=== PATIENT | female | born 1970 | race Caucasian/White ===

== ENCOUNTER 2018-01-03 09:30 | Day surgery (SDC) | payer BC ==
[2018-01-03 09:38] VITALS: BMI 43.5
[2018-01-03 10:22] LABS: BASO % 0.6 % (0-2.0); EOS % 4.1 % (0-4.5); HEMATOCRIT 46.8 % (32.4-45.2); HEMOGLOBIN 15.6 GM/dl (10.7-15.3); LYMPH % 31.8 % (8-40); MCH 29.4 pg (25.7-33.7); MCHC 33.4 g/dl (32.0-36.0); MEAN CELL VOLUME 88.2 fl (80-96); MEAN PLT VOLUME 9.1 fl (7.5-11.1); MONO % 7.2 % (3.8-10.2); NEUT % 56.3 % (42.8-82.8); PLATELET COUNT 257 K/MM3 (134-434); RBC 5.31 M/mm3 (3.60-5.2); RDW 14.4 % (11.6-15.6); WHITE BLOOD COUNT 9.8 K/mm3 (4.0-10.8)
[2018-01-03 10:36] LABS: INR 1.02 (0.82-1.09); PROTHROMBIN TIME (PATIENT) 11.4 SEC (10.2-13.0)
[2018-01-03 10:42] LABS: ALBUMIN 3.7 g/dl (3.5-5.0); ALK PHOS 53 U/L (32-92); ANION GAP 5 (8-16); BILIRUBIN,TOTAL 0.5 mg/dl (0.2-1.0); BLOOD UREA NITROGEN 15 mg/dl (7-18); CHLORIDE 106 mmol/L (98-107); CO2 24 mmol/L (22-28); CREATININE 0.7 mg/dl (0.6-1.3); GLUCOSE,RANDOM 102 mg/dl (74-106); POTASSIUM 3.9 mmol/L (3.5-5.1); SGOT/AST 18 U/L (10-42); SGPT/ALT 18 U/L (10-40); SODIUM 135 mmol/L (136-145); TOT PROT 6.6 g/dl (6.4-8.3)
--- NOTE | 2018-01-03 10:50 | PDOC ---
History of Present Illness - General Chief Complaint: Wound Stated Complaint: PUS COMING OUT OF OP SITE Time Seen by Provider: 01/03/18 09:45 History Source: Patient Exam Limitations: No Limitations - History of Present Illness Initial Comments: 01/03/18 10:45 47-year-old female status post lap gastric sleeve in July 2017 presents with persistent discharge from left abdominal laparoscopic site. Patient has had daily discharge from the wound since 1-2 weeks following the surgery, has completed about 3 courses of antibiotics including Bactrim and Levaquin, most recently completed the last course about a week ago. Per PMD, wound culture has grown staph. Patient has no fevers or chills, occasionally has redness around the wound, has images showing purulent discharge but no blood. Patient had a CAT scan 3 days ago and was called by Dr. Bojorquez today to presents for treatment of infection. Reports some expected diarrhea since the procedure. Complains of fatigue but no f/c/night sweats. Past History - Past Medical History Allergies/Adverse Reactions: Allergies Allergy/AdvReac Type Severity Reaction Status Date / Time No Known Drug Allergies Allergy Verified 01/03/18 09:33 Home Medications: Ambulatory Orders Albuterol Sulfate Inhaler - [Ventolin Hfa Inhaler -] 1 - 2 inh PO Q4H PRN Budesonide/Formeterol Fumarate [SYMBICORT 160/4.5mcg -] 1 inh PO DAILY 01/03/18 Lisinopril/Hydrochlorothiazide [Zestoretic 10-12.5 mg Tablet] 1 each PO DAILY Quetiapine Fumarate [Seroquel -] 50 mg PO HS 01/03/18 Topiramate 100 mg PO BID 01/03/18 Venlafaxine HCl [Effexor -] 75 mg PO DAILY 01/03/18 Asthma: Yes COPD: No HTN: Yes Other medical history: MIGRAINE HEADACHES - Surgical History Appendectomy: Yes Cholecystectomy: Yes - Suicide/Smoking/Psychosocial Hx Smoking History: Never smoked Have you smoked in the past 12 months: No Hx Alcohol Use: No Drug/Substance Use Hx: No Review of Systems - Review of Systems Constitutional: Yes: Malaise. No: Chills, Fever, Night Sweats Respiratory: No: Cough, Shortness of Breath Cardiac (ROS): No: Chest Pain, Palpitations ABD/GI: Yes: See HPI. No: Nausea, Vomiting : No: Dysuria, Frequency Integumentary: Yes: See HPI All Other Systems: Reviewed and Negative *Physical Exam - Vital Signs Last Vital Signs Temp Pulse Resp BP Pulse Ox 98.3 F 72 18 146/68 100 01/03/18 09:30 01/03/18 09:30 01/03/18 09:30 01/03/18 09:30 01/03/18 09:30 - Physical Exam Comments: 01/03/18 10:47 Afebrile. Vital signs normal. GENERAL: The patient is awake, alert, and fully oriented, in no acute distress. Morbidly obese. HEAD: Normal with no signs of trauma. EYES: PERRL, EOMI, sclera anicteric, conjunctiva clear with no pallor. ENT: oropharynx clear without exudates. Moist mucous membranes. NECK: Normal range of motion, supple without lymphadenopathy, JVD, or masses. LUNGS: Breath sounds equal, clear to auscultation bilaterally. No wheeze/ crackles. HEART: Regular rate and rhythm, normal S1 and S2 without murmur or rub. ABDOMEN: Soft/nontender/nondistended. BS wnl. No guarding or rebound. No palpable masses. No hepatosplenomegaly. EXTREMITIES: Normal range of motion, no edema. 2+ distal pulses. No cords, erythema, or tenderness. NEUROLOGICAL: Cranial nerves II through XII grossly intact. Normal speech, normal gait. PSYCH: Normal mood, normal affect. SKIN: Left anterior abdomen laparoscopic site with slightly open wound, no active discharge but there is a 4-5 cm area of subcutaneous induration that is tender just below the wound. No surrounding erythema at this time. Other Healed laparoscopic incision sites noted. ED Treatment Course - LABORATORY CBC & Chemistry Diagram: 01/03/18 10:10 01/03/18 10:10 - ADDITIONAL ORDERS Additional order review: 01/03/18 10:10 RBC 5.31 H MCV 88.2 MCHC 33.4 RDW 14.4 MPV 9.1 Neutrophils % 56.3 Lymphocytes % 31.8 Monocytes % 7.2 Eosinophils % 4.1 Basophils % 0.6 Medical Decision Making - Medical Decision Making 01/03/18 10:49 47-year-old female with likely infected laparoscopic incision site. Likely has underlying subcutaneous abscess requiring drainage. Well appearing without evidence of sepsis. labs, wound culture Will obtain imaging results and plan from Dr. Bojorquez 01/03/18 11:29 normal labs, no leukocytosis. Plan is for OR with Dr. Bojorquez, who saw pt in ED. *DC/Admit/Observation/Transfer Diagnosis at time of Disposition: Abdominal wall abscess at site of surgical wound - Discharge Dispostion Condition at time of disposition: Stable Admit: Yes - Referrals - Patient Instructions - Post Discharge Activity
[2018-01-03 11:17] LABS: PH,URINE 7.5 (4.5-8); URINE APPEARANCE Cloudy; URINE BILIRUBIN Negative (NEGATIVE); URINE BLOOD Negative (NEGATIVE); URINE GLUCOSE (UA) Negative (NEGATIVE); URINE KETONE Trace (NEGATIVE); URINE NITRITE Negative (NEGATIVE); URINE PROTEIN Negative (NEGATIVE)
[2018-01-03 11:19] LABS: URINE COLOR YELLOW; URINE LEUK ESTERASE TRACE (NEGATIVE)
[2018-01-03 11:22] LABS: HCG,QUALITATIVE URINE NEGATIVE
[2018-01-03 11:40] LABS: AMORP PHOS FEW /hpf (NONE SEEN); EPI CELLS FEW /HPF; URINE RBC 0-2 /hpf (0-3); URINE WBC 0-2 (0-5)
[2018-01-03] MEDS ORDERED: MIDAZOLAM HCL 2 MG/2 ML SINGLE DOSE VIAL ONE (12:14)
[2018-01-03] MEDS ORDERED: SUCCINYLCHOLINE CHLORIDE 200 MG/10 ML VIAL ONE (12:14)
[2018-01-03] MEDS ORDERED: PROPOFOL 20 ML ONE ×2 (12:14)
[2018-01-03] MEDS ORDERED: ceFAZolin SODIUM 1 GM VIAL ONE (12:27)
[2018-01-03] MEDS ORDERED: ONDANSETRON 4 MG/2 ML VIAL ONE (12:31)
[2018-01-03] MEDS ORDERED: ONDANSETRON 4 MG/2 ML VIAL IVPUSH PRN ×3 (13:04→14:52)
[2018-01-03] MEDS ORDERED: oxyCODONE HCL 5 MG TABLET PO PRN (13:04)
[2018-01-03] MEDS ORDERED: FAMOTIDINE 20 MG PREMIXED IVPB IVPB ONE (13:10)
[2018-01-03] MEDS ORDERED: FAMOTIDINE 20 MG/50 ML IVPB 20 MG/50 ML MG IVPB ONE (13:15)
[2018-01-03] MEDS ORDERED: LACTATED RINGERS SOLUTION 1,000 ML IV SCH (13:15)
--- NOTE | 2018-01-03 13:20 | OP ---
Operative Note - Note: Operative Date: 01/03/18 Pre-Operative Diagnosis: Infected Left Abdominal Wall Subcutaneous tissue Operation: I&D of Left Abdominal Wall Abscess. Debridement of necrotic tissue of left abdominal wall subcutaneous tissue Findings: Left abdominal wall subcutaneous tissue with abscess noted with purulent fluid under skin. Necrotic subcutaneous tissue debrided and sent for culture and pathology Post-Operative Diagnosis: Same as Pre-op (necrotic subcutaneous tissue; abdominal wall abscess) Surgeon: Andre Bojorquez Anesthesia: General Specimens Removed: Left abdominal wall subcutaneous tissue Estimated Blood Loss (mls): 20 Operative Report Dictated: Yes
--- NOTE | 2018-01-03 13:21 | OP ---
Operative Note - Note: Operative Date: 01/03/18 Pre-Operative Diagnosis: Infected left abdominal wall subcutaneo Operation: I&D of Abdominal wall abscess. Debridement of necrotic sub-Q tissue of abdominal wall Findings: Purulent material found under skin of left abdominal wall Necrotic sub-Q tissue found and debrided Post-Operative Diagnosis: Same as Pre-op (Abscess of left abdominal wall; Necrotic sub-Q tissue of abdominal wall) Surgeon: Andre Bojorquez Anesthesia: General Specimens Removed: Infected/necrotic sub-Q tissue of left abdominal wall Estimated Blood Loss (mls): 20 Operative Report Dictated: Yes
--- NOTE | 2018-01-03 14:17 | OP ---
DATE OF OPERATION: 01/03/2018 PREOPERATIVE DIAGNOSIS: Infected subcutaneous tissue of the left abdominal pain. POSTOPERATIVE DIAGNOSES: 1. Left abdominal wall subcutaneous abscess. 2. Left abdominal wall subcutaneous necrotic tissue. OPERATIVE PROCEDURES: 1. Incision and drainage of left abdominal wall abscess. 2. Debridement of necrotic subcutaneous tissue of left abdominal wall. OPERATING SURGEON: Andre Bojorquez MD ANESTHESIA: General. EXPECTED BLOOD LOSS: 20 mL. DESCRIPTION OF PROCEDURE: The patient was brought into the operating room and placed on the OR table in a supine position. All precautions were taken initially including padding for the back. The abdomen was then prepped and draped in a usual manner. At that point, the patient's left upper quadrant trocar incision had been infected for approximately 4-6 weeks prior to surgery. She received multiple rounds of antibiotics by her primary care physician without any improvement. At this point, the incision was opened up for approximately 3 cm in a transverse direction with a scalpel. Once it went through the hard area of the skin, which was a lot of fibrous tissue, there was an open cavity in the subcutaneous tissue. This cavity had fluid in it, which was significant for pus, and cultures were taken and sent off the field to the laboratory. At this point, there were found to be loculations in all 360-degree circular direction around the incision under the skin. With a combination of a hemostat clamp and also with the operating surgeon's finger, these adhesions were broken up, and more infected tissue was noted behind the adhesion. This was suctioned out with a handheld suction until the area was basically cleared of all loculations. Attention was now directed to the tissue in the subcutaneous plane, which appeared to be infected and necrotic. This was debrided off of the left anterior rectus muscle, and it was done so until some slight bleeding was noted. Irrigation was now placed into the area in all directions and suctioned until clear. At that point, 1-inch plain packing was placed into the pocket in the subcutaneous tissue in all directions, specifically medially, laterally, and also inferiorly. Dressings and Tegaderm were placed and the patient awoken from anesthesia and transferred out of the operating room to the recovery room in stable condition. Woo [id number]
[2018-01-03 14:23] VITALS: PULSE 56; TEMP 97.7
[2018-01-03 14:56] VITALS: BP 122/67
[2018-01-03] MEDS ORDERED: SODIUM CHLORIDE 1,000 ML IV SCH (15:00)
[2018-01-03] MEDS ORDERED: FAMOTIDINE 20 MG/50 ML IVPB 20 MG/50 ML MG IVPB SCH (22:00)
--- NOTE | 2018-01-07 11:19 | PATH ---
Surgical Pathology Report Patient Name: REANNA NAVA [facility]. Rec. #: [id number] /Age/Gender: 1970 (Age: 47) / F Account: [id number] Location: [facility] Taken: 01/03/2018 Received: 01/03/2018 Reported: 01/07/2018 Physicians: Andre Bojorquez M.D. Specimen(s) Received LEFT ABDOMINAL WALL INFECTED SUBCUTANEOUS FAT Clinical History Infection left abdominal wall Final Diagnosis SOFT TISSUE, LEFT ABDOMINAL WALL, DEBRIDEMENT: ADIPOSE TISSUE WITH FAT NECROSIS AND ACUTE INFLAMMATION. Electronically Signed Dennys Styles M.D. Gross Description Received in formalin labelled "left abdominal wall infected subcutaneous fat" is a 3 x 3 x 0.8 cm aggregate of yellow fatty tissue fragments. A credit resolution representative portion is submitted in one cassette. [facility]/01/04/2018 [facility]/01/04/2018
== END 2018-01-03 14:46 | disposition home or self-care (01) ==
LOC: FER 09:30 → FASU 11:54
PROVIDERS: ATTEND Surgery
PROC: 0KBL0ZZ Excision of Left Abdomen Muscle, Open Approach (ICD-10-PCS; 2018-01-03)
PROC: 0J980ZZ Drainage of Abdomen Subcutaneous Tissue and Fascia, Open Approach (ICD-10-PCS; principal; 2018-01-03 12:36)
DX: L02.211 Cutaneous abscess of abdominal wall (principal)
CPT/HCPCS: 36415; 80053; 81003; 81015; 84703; 85025; 85610; 86850; 86900; 86901; 87070; 87076; 87077; 87205; 88304-TC; 99284-25